=== PATIENT | male | born 1965 | race Two or more races ===

== ENCOUNTER 2023-11-11 10:26 | Inpatient (IN) | payer OTHER ==
[~2023-11-11] VITALS: Ht 167.6 cm; Wt 74.9 kg
[2023-11-11] MEDS ORDERED: LABETALOL HCL 5 MG/ML 4ML SYRINGE IV ONE ×3 (11:00→15:00)
[2023-11-11] MEDS ORDERED: LORazepam 2MG/ML-1ML VIAL IV ONE (11:00)
[2023-11-11 11:38] LABS: Basophils # (auto) 0.1 10 ^3/uL (0-0.2); Basophils % (auto) 0.7 % (0.0-2.0); Eosinophils # (auto) 0.1 10 ^3/uL (0-0.8); Eosinophils % (auto) 0.8 % (0.0-7.0); Hematocrit 33.5 % (41.0-53.0); Hemoglobin 10.7 g/dL (13.5-17.5); Lymphocytes % (auto) 14.3 % (10.0-50.0); Mean Corpuscular Hemoglobin 29.1 pg (28.0-32.0); Mean Corpuscular Hgb Conc. 31.9 g/dL (32.0-36.0); Mean Corpuscular Volume 91.2 fL (80.0-100.0); Monocytes # (auto) 0.5 10 ^3/uL (0-1.3); Monocytes % (auto) 7.3 % (0.0-12.0); Neutrophils # (auto) 5.6 10 ^3/uL (1.6-8.6); Neutrophils % (auto) 76.9 % (37.0-80.0); Nucleated Red Blood Cells % 0.1 %; Red Blood Cells 3.67 10^6/uL (4.5-5.90); White Blood Cell 7.3 10^3/uL (4.4-10.8)
[2023-11-11] MEDS ORDERED: levETIRAcetam 500 mg/100ml 100 ML IV SCH (11:45)
[2023-11-11 12:03] LABS: Alanine Aminotransferase 20 U/L (7-40); Albumin 4.4 g/dL (3.2-4.8); Alkaline Phosphatase 86 U/L (46-116); Anion Gap 21 (5-15); Aspartate Aminotransferase 49 U/L (13-40); BUN/Creatinine Ratio 5.2 (10.0-20.0); Blood Alcohol < 3.0 mg/dL (<10); Blood Urea Nitrogen 69 mg/dL (9-23); Calcium 9.5 mg/dL (8.5-10.1); Carbon Dioxide 19 mmol/L (20-30); Chloride 96 mmol/L (98-107); Creatine Kinase IFCC 250 U/L (46-171); Glucose 105 mg/dL (74-106); Potassium 4.7 mmol/L (3.5-5.1); Sodium 136 mmol/L (136-145)
[2023-11-11 12:04] LABS: Bilirubin, Total 0.4 mg/dL (0.2-1.0); Total Protein 6.8 g/dL (5.7-8.2)
[2023-11-11 12:08] LABS: Lactic Acid w/Reflex 3.8 mmol/L (0.4-2.0)
[2023-11-11] MEDS ORDERED: SODIUM CHLORIDE 0.9% 500 ML IV ONE (12:30)
[2023-11-11 13:03] LABS: Magnesium 2.9 mg/dL (1.6-2.6)
[2023-11-11] MEDS ORDERED: PIPERACILLIN-TAZOB 2.25GM 50 ML IV ONE (13:15)
[2023-11-11] MEDS ORDERED: NITROGLYCERIN 0.4 MG SL TAB SL PRN (14:00)
[2023-11-11] MEDS ORDERED: MORPHINE SULFATE INJ 2 MG/ml SYRG IV PRN (14:00)
[2023-11-11] MEDS ORDERED: ALBUTEROL SULF 2.5 MG/0.5ML(0.5%) NEB SOLN NEB PRN (14:15)
[2023-11-11] MEDS ORDERED: DEXTROSE (50%) 50ML SYRG IV PRN (14:15)
[2023-11-11] MEDS ORDERED: cefTRIAXone 1GM/50ML D5W 50 ML IV ONE (14:45)
[2023-11-11] MEDS ORDERED: AZITHROMYCIN 500MG/ 250ML 250 ML IV ONE (15:15)
[2023-11-11] MEDS ORDERED: levETIRAcetam 500 mg/100ml 100 ML IV PRN (15:15)
[2023-11-11 15:44] VITALS: BP 178/101; PULSE 78; RESP 14; TEMP 97.6; O2SAT 96
[2023-11-11] MEDS: hydrALAZINE HCL 20 MG/ML VL IV PRN ×2 (16:43→23:15)
[2023-11-11] MEDS: InsuLIN REG 1unit/0.01ml Soln (100units/ml) SC SCH ×2 (17:00→22:00)
[2023-11-11] MEDS: ACCU-CHEK COMFORT CURVE STRIP VI SCH ×2 (18:02→22:15)
[2023-11-11 18:10] VITALS: PULSE 85; RESP 18; O2SAT 97
[2023-11-11 18:20] VITALS: PULSE 88; RESP 18; O2SAT 99
[2023-11-11] MEDS: IPRATROPIUM BROM 0.5 MG/2.5ML INH SOL NEB SCH ×2 (19:13→22:10)
[2023-11-11] MEDS: ALBUTEROL SULF 2.5 MG/0.5ML(0.5%) NEB SOLN NEB SCH ×2 (19:13→22:10)
[2023-11-11 19:40] VITALS: PULSE 86; RESP 20; O2SAT 96
[2023-11-11 21:30] VITALS: PULSE 87; RESP 12; O2SAT 97
[2023-11-11 21:40] VITALS: PULSE 84; RESP 12; O2SAT 99
[2023-11-11] MEDS ORDERED: cloNIDine 0.2 mg/24hr 7DAY PATCH TD ONE (22:00)
[2023-11-11] MEDS ORDERED: cloNIDine HCL 0.1 MG TAB PO ONE (22:15)
[2023-11-11] MEDS: levETIRAcetam 500 mg/100ml 100 ML IV SCH (22:15)
[2023-11-12] VITALS (11 sets, daily range): BP systolic 148–210; BP diastolic 86–117; PULSE 68–85; RESP 12–19; TEMP 98.3–98.8; O2SAT 94–100
[2023-11-12] MEDS: IPRATROPIUM BROM 0.5 MG/2.5ML INH SOL NEB SCH ×6 (02:56→22:00)
[2023-11-12] MEDS: ALBUTEROL SULF 2.5 MG/0.5ML(0.5%) NEB SOLN NEB SCH ×6 (02:56→22:00)
[2023-11-12] MEDS: hydrALAZINE HCL 20 MG/ML VL IV PRN ×2 (06:03→19:42)
[2023-11-12] MEDS: ACCU-CHEK COMFORT CURVE STRIP VI SCH ×4 (06:22→21:57)
[2023-11-12] MEDS: InsuLIN REG 1unit/0.01ml Soln (100units/ml) SC SCH ×4 (06:23→21:58)
[2023-11-12 06:42] LABS: Basophils # (auto) 0.1 10 ^3/uL (0-0.2); Basophils % (auto) 1.1 % (0.0-2.0); Eosinophils # (auto) 0 10 ^3/uL (0-0.8); Eosinophils % (auto) 0.5 % (0.0-7.0); Hematocrit 28.9 % (41.0-53.0); Hemoglobin 9.4 g/dL (13.5-17.5); Lymphocytes # (auto) 0.7 10 ^3/uL (0.4-5.4); Lymphocytes % (auto) 12.5 % (10.0-50.0); Mean Corpuscular Hemoglobin 29.5 pg (28.0-32.0); Mean Corpuscular Hgb Conc. 32.6 g/dL (32.0-36.0); Mean Corpuscular Volume 90.4 fL (80.0-100.0); Monocytes # (auto) 0.5 10 ^3/uL (0-1.3); Monocytes % (auto) 8.8 % (0.0-12.0); Neutrophils # (auto) 4.1 10 ^3/uL (1.6-8.6); Neutrophils % (auto) 77.1 % (37.0-80.0); Nucleated Red Blood Cells % 0.2 %; Red Cell Distribution Width 17.9 % (11.8-14.3); White Blood Cell 5.4 10^3/uL (4.4-10.8)
[2023-11-12] MEDS ORDERED: SODIUM CHL 0.9% 1000 ML BAG XX ONE (07:00)
[2023-11-12 07:06] LABS: Alanine Aminotransferase 11 U/L (7-40); Albumin 3.9 g/dL (3.2-4.8); Alkaline Phosphatase 77 U/L (46-116); Anion Gap 12 (5-15); Aspartate Aminotransferase 32 U/L (13-40); BUN/Creatinine Ratio 4.4 (10.0-20.0); Bilirubin, Total 0.3 mg/dL (0.2-1.0); Blood Urea Nitrogen 64 mg/dL (9-23); Carbon Dioxide 24 mmol/L (20-30); Chloride 98 mmol/L (98-107); Creatine Kinase IFCC 449 U/L (46-171); Glucose 76 mg/dL (74-106); Sodium 134 mmol/L (136-145); Total Protein 6.5 g/dL (5.7-8.2)
[2023-11-12] MEDS ORDERED: cefTRIAXone 1GM/50ML D5W 50 ML IV SCH (09:00)
[2023-11-12] MEDS ORDERED: ALBUMIN 25% 100 ML IV ONE ×2 (09:15)
[2023-11-12] MEDS ORDERED: LOSARTAN POTASSIUM 25 MG TAB PO SCH (10:15)
[2023-11-12] MEDS ORDERED: LEVOTHYROXINE SODIUM 100 MCG/5 ML INJ IV ONE (10:30)
[2023-11-12] MEDS: METOPROLOL TARTRATE 50 MG TAB PO SCH ×2 (13:21→21:44)
[2023-11-12] MEDS: SEVELAMER 800 MG TAB PO SCH ×2 (13:21→18:21)
[2023-11-12] MEDS: AZITHROMYCIN 500MG/ 250ML 250 ML IV SCH (13:23)
[2023-11-12] MEDS ORDERED: SEVE800T PO (14:52)
[2023-11-12] MEDS ORDERED: METO-158 PO (14:52)
[2023-11-12] MEDS ORDERED: LOSA25TA5 PO (14:52)
[2023-11-12] MEDS: CEFEPIME 1GM/ 50ML 50 ML IV SCH (16:20)
[2023-11-12] MEDS ORDERED: EPOETIN ALFA-EPBX 10,000 UNIT/1ML VIAL SC ONE (21:00)
[2023-11-12] MEDS ORDERED: cloNIDine HCL 0.1 MG TAB PO ONE (21:00)
[2023-11-12] MEDS: ACETAMINOPHEN 325 MG TAB PO PRN (21:07)
[2023-11-12] MEDS: levETIRAcetam 500 mg/100ml 100 ML IV SCH (21:47)
[2023-11-12] MEDS ORDERED: LORazepam 2MG/ML-1ML VIAL IV PRN ×2 (23:00)
[2023-11-13] VITALS (21 sets, daily range): BP systolic 149–217; BP diastolic 92–116; PULSE 64–93; RESP 16–20; TEMP 97.8–98.3; O2SAT 95–100
[2023-11-13] MEDS: IPRATROPIUM BROM 0.5 MG/2.5ML INH SOL NEB SCH ×6 (01:13→23:00)
[2023-11-13] MEDS: ALBUTEROL SULF 2.5 MG/0.5ML(0.5%) NEB SOLN NEB SCH ×6 (01:13→23:00)
[2023-11-13 05:16] LABS: Basophils # (auto) 0.1 10 ^3/uL (0-0.2); Basophils % (auto) 1.4 % (0.0-2.0); Eosinophils # (auto) 0 10 ^3/uL (0-0.8); Eosinophils % (auto) 0.7 % (0.0-7.0); Hematocrit 30.8 % (41.0-53.0); Lymphocytes # (auto) 0.7 10 ^3/uL (0.4-5.4); Lymphocytes % (auto) 15.8 % (10.0-50.0); Mean Corpuscular Hemoglobin 29.3 pg (28.0-32.0); Mean Corpuscular Hgb Conc. 32.4 g/dL (32.0-36.0); Mean Corpuscular Volume 90.7 fL (80.0-100.0); Monocytes # (auto) 0.4 10 ^3/uL (0-1.3); Neutrophils # (auto) 3.2 10 ^3/uL (1.6-8.6); Neutrophils % (auto) 73.1 % (37.0-80.0); Nucleated Red Blood Cells % 0.3 %; Red Cell Distribution Width 18.2 % (11.8-14.3); White Blood Cell 4.4 10^3/uL (4.4-10.8)
[2023-11-13] MEDS: hydrALAZINE HCL 20 MG/ML VL IV PRN ×2 (05:16→12:08)
[2023-11-13 05:45] LABS: Alanine Aminotransferase 11 U/L (7-40); Albumin 4.3 g/dL (3.2-4.8); Alkaline Phosphatase 79 U/L (46-116); Anion Gap 12 (5-15); Aspartate Aminotransferase 30 U/L (13-40); BUN/Creatinine Ratio 3.2 (10.0-20.0); Bilirubin, Total 0.4 mg/dL (0.2-1.0); Calcium 9.1 mg/dL (8.7-10.4); Carbon Dioxide 22 mmol/L (20-30); Chloride 99 mmol/L (98-107); Glucose 75 mg/dL (74-106); Sodium 133 mmol/L (136-145); Total Protein 6.9 g/dL (5.7-8.2)
[2023-11-13] MEDS: LEVOTHYROXINE SODIUM 50 MCG TAB PO SCH (06:15)
[2023-11-13] MEDS: ACCU-CHEK COMFORT CURVE STRIP VI SCH ×4 (06:17→21:50)
[2023-11-13] MEDS: InsuLIN REG 1unit/0.01ml Soln (100units/ml) SC SCH ×5 (06:58→21:52)
[2023-11-13 07:06] LABS: Blood Urea Nitrogen 37 mg/dL (9-23)
[2023-11-13] MEDS: SEVELAMER 800 MG TAB PO SCH ×3 (08:23→18:07)
[2023-11-13] MEDS ORDERED: LOSARTAN POTASSIUM 50 MG TAB PO SCH (10:00)
[2023-11-13] MEDS ORDERED: SODIUM ZIRCONIUM CYCL 10 GM PAK PO ONE (10:15)
[2023-11-13] MEDS: METOPROLOL TARTRATE 50 MG TAB PO SCH ×2 (10:16→21:25)
[2023-11-13] MEDS: amLODIPine BESYLATE 5 MG TAB PO SCH (10:16)
[2023-11-13] MEDS: AZITHROMYCIN 500MG/ 250ML 250 ML IV SCH (10:18)
[2023-11-13] MEDS ORDERED: LEVO125C3 PO (10:28)
[2023-11-13] MEDS ORDERED: KEP500T PO (10:28)
[2023-11-13] MEDS ORDERED: ONDANSETRON HCL 4 MG/2 ML VIAL IV PRN (12:00)
[2023-11-13] MEDS ORDERED: LOSA50TA46 PO ×2 (12:34)
[2023-11-13] MEDS ORDERED: LEVO500T91 PO (12:34)
[2023-11-13] MEDS ORDERED: AMLO1TAB23 PO (12:35)
[2023-11-13] MEDS ORDERED: ALBUAER3 IN (12:38)
[2023-11-13] MEDS ORDERED: cloNIDine HCL 0.1 MG TAB ONE (13:39)
[2023-11-13] MEDS ORDERED: hydrALAZINE HCL 20 MG/ML VL IV ONE (16:00)
[2023-11-13] MEDS ORDERED: LABETALOL HCL 5 MG/ML 4ML SYRINGE IV ONE (17:45)
[2023-11-13] MEDS: CEFEPIME 1GM/ 50ML 50 ML IV SCH (18:08)
[2023-11-13] MEDS ORDERED: hydrALAZINE HCL 20 MG/ML VL IV PRN (20:45)
[2023-11-13] MEDS: LOSARTAN POTASSIUM 50 MG TAB PO SCH (21:24)
[2023-11-13] MEDS: hydrALAZINE HCL 25 MG TAB PO SCH (21:26)
[2023-11-13] MEDS: levETIRAcetam 500 mg/100ml 100 ML IV SCH (21:27)
[2023-11-14] VITALS (16 sets, daily range): BP systolic 142–197; BP diastolic 84–111; PULSE 78–95; RESP 16–20; TEMP 98–98.3; O2SAT 92–100
[2023-11-14] MEDS ORDERED: LABETALOL HCL 5 MG/ML 4ML SYRINGE IV PRN (02:00)
[2023-11-14] MEDS: IPRATROPIUM BROM 0.5 MG/2.5ML INH SOL NEB SCH ×4 (02:16→14:22)
[2023-11-14] MEDS: ALBUTEROL SULF 2.5 MG/0.5ML(0.5%) NEB SOLN NEB SCH ×4 (02:16→14:22)
[2023-11-14] MEDS: hydrALAZINE HCL 25 MG TAB PO SCH ×2 (05:13→05:40)
[2023-11-14] MEDS: cloNIDine HCL 0.1 MG TAB PO SCH ×2 (05:18→13:35)
[2023-11-14] MEDS: LEVOTHYROXINE SODIUM 50 MCG TAB PO SCH (06:43)
[2023-11-14] MEDS ORDERED: SODIUM CHL 0.9% 1000 ML BAG XX ONE (07:00)
[2023-11-14] MEDS: ACCU-CHEK COMFORT CURVE STRIP VI SCH ×2 (07:27→11:54)
[2023-11-14 08:52] LABS: Basophils # (auto) 0.1 10 ^3/uL (0-0.2); Basophils % (auto) 1.4 % (0.0-2.0); Eosinophils # (auto) 0 10 ^3/uL (0-0.8); Eosinophils % (auto) 0.6 % (0.0-7.0); Hematocrit 32.8 % (41.0-53.0); Hemoglobin 10.4 g/dL (13.5-17.5); Lymphocytes # (auto) 0.7 10 ^3/uL (0.4-5.4); Lymphocytes % (auto) 11.8 % (10.0-50.0); Mean Corpuscular Hemoglobin 28.8 pg (28.0-32.0); Mean Corpuscular Hgb Conc. 31.7 g/dL (32.0-36.0); Mean Corpuscular Volume 90.7 fL (80.0-100.0); Monocytes # (auto) 0.5 10 ^3/uL (0-1.3); Neutrophils # (auto) 4.7 10 ^3/uL (1.6-8.6); Neutrophils % (auto) 78.2 % (37.0-80.0); Nucleated Red Blood Cells % 0.8 %; Red Blood Cells 3.61 10^6/uL (4.5-5.90); Red Cell Distribution Width 18.5 % (11.8-14.3); White Blood Cell 6.1 10^3/uL (4.4-10.8)
[2023-11-14 09:03] LABS: Alanine Aminotransferase 16 U/L (7-40); Albumin 4.6 g/dL (3.2-4.8); Alkaline Phosphatase 85 U/L (46-116); Anion Gap 16 (5-15); Aspartate Aminotransferase 31 U/L (13-40); BUN/Creatinine Ratio 3.2 (10.0-20.0); Blood Urea Nitrogen 42 mg/dL (9-23); Calcium 9.5 mg/dL (8.7-10.4); Carbon Dioxide 18 mmol/L (20-30); Chloride 96 mmol/L (98-107); Creatine Kinase IFCC 361 U/L (46-171); Glucose 70 mg/dL (74-106); Magnesium 2.7 mg/dL (1.6-2.6); Sodium 130 mmol/L (136-145)
[2023-11-14 09:04] LABS: Bilirubin, Total 0.4 mg/dL (0.2-1.0); Total Protein 7.5 g/dL (5.7-8.2)
[2023-11-14] MEDS: SEVELAMER 800 MG TAB PO SCH ×2 (09:07→12:00)
[2023-11-14] MEDS: amLODIPine BESYLATE 5 MG TAB PO SCH (09:08)
[2023-11-14] MEDS: LOSARTAN POTASSIUM 50 MG TAB PO SCH (09:08)
[2023-11-14] MEDS: AZITHROMYCIN 500MG/ 250ML 250 ML IV SCH (09:09)
[2023-11-14] MEDS: METOPROLOL TARTRATE 50 MG TAB PO SCH (09:09)
[2023-11-14 09:18] LABS: Potassium 6.4 mmol/L (3.5-5.1)
[2023-11-14] MEDS ORDERED: InsuLIN REG 1unit/0.01ml Soln (100units/ml) IV ONE (10:00)
[2023-11-14] MEDS ORDERED: ALBUTEROL SULF 2.5 MG/0.5ML(0.5%) NEB SOLN NEB ONE (10:00)
[2023-11-14] MEDS ORDERED: FUROSEMIDE 40 MG/4 ML VIAL IV ONE (10:00)
[2023-11-14] MEDS ORDERED: DEXTROSE (50%) 50ML SYRG IV ONE (10:00)
[2023-11-14] MEDS ORDERED: HYDR-5052 PO (12:51)
[2023-11-14] MEDS: ACETAMINOPHEN 325 MG TAB PO PRN (13:41)
[2023-11-14] MEDS ORDERED: hydrALAZINE HCL 25 MG TAB PO SCH ×2 (14:00)
[2023-11-14] MEDS ORDERED: SODIUM ZIRCONIUM CYCL 10 GM PAK PO SCH (14:00)
[2023-11-14] MEDS ORDERED: EPOETIN ALFA-EPBX 4,000 UNIT/ML VIAL SC ONE (21:00)
[2023-11-14] MEDS ORDERED: CARVEDILOL 12.5 MG TAB PO SCH (22:00)
== END 2023-11-14 17:05 | disposition home or self-care (01) | DRG 53 ==
LOC: EDBD 10:26 → ER 10:26 → TELE 13:52 → TELE-WESTW 11-12 08:58
PROVIDERS: ADMIT Internal Medicine; ATTEND Internal Medicine
PROC: 5A1D70Z Performance of Urinary Filtration, Intermittent, Less than 6 Hours Per Day (ICD-10-PCS; principal; 2023-11-12)
PROC: 5A1D70Z Performance of Urinary Filtration, Intermittent, Less than 6 Hours Per Day (ICD-10-PCS; 2023-11-14)
DX: G40.409 Other generalized epilepsy and epileptic syndromes, not intractable, without status epilepticus (principal); J69.0 Pneumonitis due to inhalation of food and vomit; G93.41 Metabolic encephalopathy; J15.69 Pneumonia due to other Gram-negative bacteria; R34 Anuria and oliguria; D69.6 Thrombocytopenia, unspecified; I12.0 Hypertensive chronic kidney disease with stage 5 chronic kidney disease or end stage renal disease; D63.1 Anemia in chronic kidney disease; E87.1 Hypo-osmolality and hyponatremia; J90 Pleural effusion, not elsewhere classified; G72.9 Myopathy, unspecified; M62.82 Rhabdomyolysis; N18.6 End stage renal disease; E11.22 Type 2 diabetes mellitus with diabetic chronic kidney disease; I16.1 Hypertensive emergency; I16.9 Hypertensive crisis, unspecified; E03.9 Hypothyroidism, unspecified; S00.03XA Contusion of scalp, initial encounter; W18.39XA Other fall on same level, initial encounter; E78.5 Hyperlipidemia, unspecified; E87.5 Hyperkalemia; Z78.1 Physical restraint status; Z79.899 Other long term (current) drug therapy; Z82.49 Family history of ischemic heart disease and other diseases of the circulatory system; Z99.2 Dependence on renal dialysis; Y93.89 Activity, other specified; Y92.89 Other specified places as the place of occurrence of the external cause; Y99.8 Other external cause status; J98.11 Atelectasis
CPT/HCPCS: 36415; 70450; 70486; 70551; 71045; 72125; 80053; 80320; 82306; 82542; 82550; 82607; 82962; 83036; 83540; 83605; 83735; 84100; 84132; 84436; 84439; 84443; 84481; 84484; 85018; 85025; 87081; 87340; 90935; 93005; 93306; 94640; 95819; 96365; 96375; 96376; 99291; G0378; J1642; J1815; J2405; J2543; J3490; P9047

== ENCOUNTER 2023-11-15 14:22 | Emergency (ER) | payer OTHER ==
[~2023-11-15] VITALS: Ht 154.9 cm; Wt 76.0 kg
[~2023-11-15 14:22] MED LIST: ALBUAER3 IN; AMLO1TAB23 PO; HYDR-5052 PO; KEP500T PO; LEVO125C3 PO; LEVO500T91 PO; METO-158 PO; SEVE800T PO
[2023-11-15 15:27] LABS: Basophils # (auto) 0 10 ^3/uL (0-0.2); Basophils % (auto) 0.3 % (0.0-2.0); Eosinophils # (auto) 0 10 ^3/uL (0-0.8); Eosinophils % (auto) 0.7 % (0.0-7.0); Hematocrit 32.7 % (41.0-53.0); Hemoglobin 10.5 g/dL (13.5-17.5); Lymphocytes # (auto) 0.9 10 ^3/uL (0.4-5.4); Lymphocytes % (auto) 14.2 % (10.0-50.0); Mean Corpuscular Hemoglobin 29.1 pg (28.0-32.0); Mean Corpuscular Hgb Conc. 32.2 g/dL (32.0-36.0); Mean Corpuscular Volume 90.5 fL (80.0-100.0); Monocytes # (auto) 0.6 10 ^3/uL (0-1.3); Monocytes % (auto) 9.5 % (0.0-12.0); Neutrophils # (auto) 4.6 10 ^3/uL (1.6-8.6); Neutrophils % (auto) 75.3 % (37.0-80.0); Nucleated Red Blood Cells % 1.2 %; Red Blood Cells 3.61 10^6/uL (4.5-5.90); Red Cell Distribution Width 18.6 % (11.8-14.3); White Blood Cell 6.1 10^3/uL (4.4-10.8)
[2023-11-15 15:47] LABS: Alanine Aminotransferase 12 U/L (7-40); Albumin 4.6 g/dL (3.2-4.8); Alkaline Phosphatase 83 U/L (46-116); Anion Gap 14 (5-15); Aspartate Aminotransferase 36 U/L (13-40); BUN/Creatinine Ratio 2.5 (10.0-20.0); Bilirubin, Total 0.4 mg/dL (0.2-1.0); Calcium 10.1 mg/dL (8.5-10.1); Carbon Dioxide 24 mmol/L (20-30); Chloride 96 mmol/L (98-107); Glucose 114 mg/dL (74-106); Potassium 4.4 mmol/L (3.5-5.1); Sodium 134 mmol/L (136-145)
[2023-11-15 15:48] LABS: Total Protein 7.5 g/dL (5.7-8.2)
[2023-11-15 16:00] LABS: Blood Urea Nitrogen 30 mg/dL (9-23)
[2023-11-15 18:44] VITALS: BP 179/96; PULSE 84; RESP 16; TEMP 98.2; O2SAT 97
== END 2023-11-15 18:46 | disposition home or self-care (01) ==
LOC: ER 14:22
DX: G92.9 Unspecified toxic encephalopathy (principal); E11.22 Type 2 diabetes mellitus with diabetic chronic kidney disease; I12.0 Hypertensive chronic kidney disease with stage 5 chronic kidney disease or end stage renal disease; N18.6 End stage renal disease; R41.82 Altered mental status, unspecified; Z99.2 Dependence on renal dialysis
CPT/HCPCS: 36415; 70450; 80053; 84484; 85025; 93005

== ENCOUNTER 2023-11-16 11:14 | Inpatient (IN) | payer OTHER ==
[~2023-11-16] VITALS: Ht 154.9 cm; Wt 68.6 kg
[2023-11-16 12:58] LABS: Basophils # (auto) 0.1 10 ^3/uL (0-0.2); Basophils % (auto) 1.2 % (0.0-2.0); Eosinophils # (auto) 0 10 ^3/uL (0-0.8); Eosinophils % (auto) 0.5 % (0.0-7.0); Hematocrit 33.4 % (41.0-53.0); Hemoglobin 10.7 g/dL (13.5-17.5); Lymphocytes # (auto) 0.8 10 ^3/uL (0.4-5.4); Lymphocytes % (auto) 13.6 % (10.0-50.0); Mean Corpuscular Hemoglobin 29.6 pg (28.0-32.0); Mean Corpuscular Volume 92.4 fL (80.0-100.0); Monocytes # (auto) 0.5 10 ^3/uL (0-1.3); Neutrophils # (auto) 4.6 10 ^3/uL (1.6-8.6); Neutrophils % (auto) 75.7 % (37.0-80.0); Nucleated Red Blood Cells % 0.8 %; Red Blood Cells 3.61 10^6/uL (4.5-5.90); Red Cell Distribution Width 18.2 % (11.8-14.3)
[2023-11-16 13:20] LABS: Alanine Aminotransferase 13 U/L (7-40); Albumin 4.6 g/dL (3.2-4.8); Alkaline Phosphatase 89 U/L (46-116); Anion Gap 15 (5-15); Aspartate Aminotransferase 32 U/L (13-40); BUN/Creatinine Ratio 3.3 (10.0-20.0); Bilirubin, Total 0.4 mg/dL (0.2-1.0); Calcium 10.2 mg/dL (8.5-10.1); Carbon Dioxide 23 mmol/L (20-30); Chloride 96 mmol/L (98-107); Glucose 94 mg/dL (74-106); Sodium 134 mmol/L (136-145); Total Protein 7.3 g/dL (5.7-8.2)
[2023-11-16 13:25] LABS: INR 1.02 (0.9-1.15); Partial Thromboplastin Time 31.5 SEC (24.5-34.5); Prothrombin Time 10.9 sec (9.3-11.8)
[2023-11-16 13:28] LABS: Blood Urea Nitrogen 46 mg/dL (9-23)
[2023-11-16] MEDS ORDERED: DEXTROSE (50%) 50ML SYRG IV PRN (14:30)
[2023-11-16] MEDS ORDERED: ACETAMINOPHEN 325 MG TAB PO PRN (14:30)
[2023-11-16] MEDS ORDERED: DOCUSATE SOD 100 MG CAP PO PRN (14:30)
[2023-11-16] MEDS ORDERED: ONDANSETRON HCL 4 MG/2 ML VIAL IV PRN (14:30)
[2023-11-16] MEDS ORDERED: SODIUM CHLORIDE 0.9% 1,000 ML IV ONE (15:00)
[2023-11-16] MEDS: ACCU-CHEK COMFORT CURVE STRIP VI SCH ×2 (17:00→21:51)
[2023-11-16] MEDS: InsuLIN REG 1unit/0.01ml Soln (100units/ml) SC SCH ×2 (17:00→21:52)
[2023-11-16] MEDS: hydrALAZINE HCL 20 MG/ML VL IV PRN (17:09)
[2023-11-16 17:51] VITALS: PULSE 86; RESP 17; O2SAT 100
[2023-11-16 18:33] VITALS: BP 195/99; PULSE 86; RESP 17; TEMP 97.7; O2SAT 100
[2023-11-16 20:00] VITALS: PULSE 92; RESP 20; O2SAT 99
[2023-11-16] MEDS: SEVELAMER 800 MG TAB PO SCH (21:56)
[2023-11-16] MEDS: METOPROLOL TARTRATE 50 MG TAB PO SCH (21:56)
[2023-11-16] MEDS: levETIRAcetam 500 MG TAB PO SCH (21:56)
[2023-11-16 22:00] VITALS: BP 165/83; PULSE 92; RESP 20; TEMP 98; O2SAT 99
[2023-11-17] VITALS (8 sets, daily range): BP systolic 180–196; BP diastolic 86–101; PULSE 87–101; RESP 15–21; TEMP 97.5–99.1; O2SAT 94–99
[2023-11-17] MEDS: SEVELAMER 800 MG TAB PO SCH ×3 (06:00→21:43)
[2023-11-17] MEDS ORDERED: LABETALOL HCL 5 MG/ML 4ML SYRINGE IV ONE (06:15)
[2023-11-17] MEDS: InsuLIN REG 1unit/0.01ml Soln (100units/ml) SC SCH ×4 (06:32→21:02)
[2023-11-17] MEDS: ACCU-CHEK COMFORT CURVE STRIP VI SCH ×4 (06:32→21:02)
[2023-11-17] MEDS: LEVOTHYROXINE SODIUM 100 MCG TAB PO SCH (06:32)
[2023-11-17] MEDS ORDERED: PATIENTS OWN MEDICATION (Levothyroxine Sodium 125 MCG) PO SCH (07:00)
[2023-11-17] MEDS ORDERED: LEVOTHYROXINE SODIUM 25 MCG TAB PO SCH (10:00)
[2023-11-17] MEDS: amLODIPine BESYLATE 5 MG TAB PO SCH ×2 (10:00→10:27)
[2023-11-17] MEDS: levETIRAcetam 500 MG TAB PO SCH ×3 (10:00→21:43)
[2023-11-17] MEDS ORDERED: AMLODIPINE BESYLATE 10 MG PO SCH (10:00)
[2023-11-17] MEDS: METOPROLOL TARTRATE 50 MG TAB PO SCH ×3 (10:00→21:44)
[2023-11-17 10:07] LABS: Alanine Aminotransferase 11 U/L (7-40); Albumin 4.5 g/dL (3.2-4.8); Alkaline Phosphatase 82 U/L (46-116); Anion Gap 15 (5-15); Aspartate Aminotransferase 25 U/L (13-40); BUN/Creatinine Ratio 2.6 (10.0-20.0); Bilirubin, Total 0.4 mg/dL (0.2-1.0); Blood Urea Nitrogen 41 mg/dL (9-23); Calcium 10.1 mg/dL (8.5-10.1); Carbon Dioxide 22 mmol/L (20-30); Chloride 96 mmol/L (98-107); Glucose 90 mg/dL (74-106); Sodium 133 mmol/L (136-145); Total Protein 7.2 g/dL (5.7-8.2)
[2023-11-17 10:14] LABS: Basophils # (auto) 0.1 10 ^3/uL (0-0.2); Basophils % (auto) 1.5 % (0.0-2.0); Eosinophils # (auto) 0 10 ^3/uL (0-0.8); Eosinophils % (auto) 0.4 % (0.0-7.0); Hemoglobin 10.2 g/dL (13.5-17.5); Lymphocytes # (auto) 0.8 10 ^3/uL (0.4-5.4); Lymphocytes % (auto) 11.4 % (10.0-50.0); Mean Corpuscular Hemoglobin 29.1 pg (28.0-32.0); Mean Corpuscular Hgb Conc. 31.7 g/dL (32.0-36.0); Mean Corpuscular Volume 91.7 fL (80.0-100.0); Monocytes # (auto) 0.5 10 ^3/uL (0-1.3); Neutrophils # (auto) 5.3 10 ^3/uL (1.6-8.6); Neutrophils % (auto) 78.7 % (37.0-80.0); Nucleated Red Blood Cells % 0.2 %; Red Blood Cells 3.49 10^6/uL (4.5-5.90); Red Cell Distribution Width 18.7 % (11.8-14.3); White Blood Cell 6.7 10^3/uL (4.4-10.8)
[2023-11-17] MEDS: hydrALAZINE HCL 20 MG/ML VL IV PRN ×3 (10:27→23:37)
[2023-11-17 10:36] LABS: Potassium 5.6 mmol/L (3.5-5.1)
[2023-11-17] MEDS ORDERED: SODIUM BICARBONATE 8.4% INJ 50ML SYRINGE IV ONE (13:45)
[2023-11-17] MEDS ORDERED: DEXTROSE (50%) 50ML SYRG IV ONE (13:45)
[2023-11-17] MEDS ORDERED: CALCIUM GLUC 1,000mg/50ml-NS 50 ML IV ONE (13:45)
[2023-11-17] MEDS ORDERED: InsuLIN REG 1unit/0.01ml Soln (100units/ml) IV ONE (13:45)
[2023-11-17] MEDS ORDERED: CATHFLO ACTIVASE (ALTEPLASE) 2 MG VIAL IV ONE (16:00)
[2023-11-17] MEDS: METOPROLOL TARTRATE 1MG/1ML-5ML VIAL IV PRN (18:45)
[2023-11-17] MEDS ORDERED: LORazepam 2MG/ML-1ML VIAL IV ONE (19:00)
[2023-11-18] VITALS (9 sets, daily range): BP systolic 140–197; BP diastolic 68–90; PULSE 65–101; RESP 17–21; TEMP 97.6–98.7; O2SAT 94–99
[2023-11-18] MEDS: METOPROLOL TARTRATE 1MG/1ML-5ML VIAL IV PRN (05:08)
[2023-11-18] MEDS: SEVELAMER 800 MG TAB PO SCH ×3 (06:09→22:00)
[2023-11-18] MEDS: LEVOTHYROXINE SODIUM 100 MCG TAB PO SCH (06:10)
[2023-11-18] MEDS: LEVOTHYROXINE SODIUM 25 MCG TAB PO SCH (06:10)
[2023-11-18] MEDS: InsuLIN REG 1unit/0.01ml Soln (100units/ml) SC SCH ×4 (06:10→22:00)
[2023-11-18] MEDS: ACCU-CHEK COMFORT CURVE STRIP VI SCH ×4 (06:10→22:00)
[2023-11-18 06:36] LABS: Chloride 97 mmol/L (98-107); Potassium 4.8 mmol/L (3.5-5.1); Sodium 134 mmol/L (136-145)
[2023-11-18 06:37] LABS: Anion Gap 11 (5-15); Carbon Dioxide 26 mmol/L (20-30)
[2023-11-18 06:38] LABS: Calcium 9.6 mg/dL (8.7-10.4)
[2023-11-18 06:43] LABS: BUN/Creatinine Ratio 2.7 (10.0-20.0); Blood Urea Nitrogen 32 mg/dL (9-23); Glucose 73 mg/dL (74-106)
[2023-11-18 07:09] LABS: Basophils # (auto) 0.2 10 ^3/uL (0-0.2); Basophils % (auto) 3.9 % (0.0-2.0); Eosinophils # (auto) 0.1 10 ^3/uL (0-0.8); Eosinophils % (auto) 0.9 % (0.0-7.0); Hematocrit 30.9 % (41.0-53.0); Hemoglobin 10.1 g/dL (13.5-17.5); Lymphocytes # (auto) 0.7 10 ^3/uL (0.4-5.4); Lymphocytes % (auto) 12.1 % (10.0-50.0); Mean Corpuscular Hgb Conc. 32.7 g/dL (32.0-36.0); Mean Corpuscular Volume 91.9 fL (80.0-100.0); Monocytes # (auto) 0.6 10 ^3/uL (0-1.3); Monocytes % (auto) 9.3 % (0.0-12.0); Neutrophils # (auto) 4.4 10 ^3/uL (1.6-8.6); Neutrophils % (auto) 73.8 % (37.0-80.0); Red Blood Cells 3.37 10^6/uL (4.5-5.90); Red Cell Distribution Width 18.7 % (11.8-14.3); White Blood Cell 5.9 10^3/uL (4.4-10.8)
[2023-11-18] MEDS: levETIRAcetam 500 MG TAB PO SCH ×2 (09:30→22:00)
[2023-11-18] MEDS: METOPROLOL TARTRATE 50 MG TAB PO SCH ×2 (09:31→22:00)
[2023-11-18] MEDS: amLODIPine BESYLATE 5 MG TAB PO SCH (09:31)
[2023-11-19] MEDS: SEVELAMER 800 MG TAB PO SCH (06:00)
[2023-11-19] MEDS: LEVOTHYROXINE SODIUM 25 MCG TAB PO SCH (06:44)
[2023-11-19] MEDS: LEVOTHYROXINE SODIUM 100 MCG TAB PO SCH (06:44)
[2023-11-19] MEDS: InsuLIN REG 1unit/0.01ml Soln (100units/ml) SC SCH (06:44)
[2023-11-19] MEDS: ACCU-CHEK COMFORT CURVE STRIP VI SCH (06:45)
[2023-11-19] MEDS ORDERED: SODIUM CHL 0.9% 1000 ML BAG XX ONE (07:00)
== END 2023-11-19 08:30 | disposition left against medical advice (07) | DRG 470 ==
LOC: ER 11:14 → OVERFLOW 14:26 → CENTRAL 17:51 → TELE-CENTR 11-17 13:36
PROVIDERS: ADMIT Nurse Practitioner Family; ATTEND Internal Medicine Geriatric Medicine
PROC: 5A1D70Z Performance of Urinary Filtration, Intermittent, Less than 6 Hours Per Day (ICD-10-PCS; principal; 2023-11-17)
DX: I12.0 Hypertensive chronic kidney disease with stage 5 chronic kidney disease or end stage renal disease (principal); G93.41 Metabolic encephalopathy; N18.6 End stage renal disease; D63.1 Anemia in chronic kidney disease; E87.1 Hypo-osmolality and hyponatremia; E11.22 Type 2 diabetes mellitus with diabetic chronic kidney disease; G40.409 Other generalized epilepsy and epileptic syndromes, not intractable, without status epilepticus; I16.0 Hypertensive urgency; E03.9 Hypothyroidism, unspecified; E87.5 Hyperkalemia; F17.200 Nicotine dependence, unspecified, uncomplicated; Z20.822 Contact with and (suspected) exposure to COVID-19; Z99.2 Dependence on renal dialysis; Z82.49 Family history of ischemic heart disease and other diseases of the circulatory system; Z79.899 Other long term (current) drug therapy
CPT/HCPCS: 36415; 70450; 71045; 80048; 80053; 82962; 84132; 84484; 85025; 85610; 85730; 90935; 93005; G0378; J1642; J3490